=== PATIENT | male | born 1950 | race African-American/Black ===

== ENCOUNTER 2019-05-13 13:18 | Emergency (ER) | payer OTHER ==
[~2019-05-13] VITALS: Ht 170.2 cm; Wt 81.7 kg
[~2019-05-13 13:18] MED LIST: ASA5UEC PO; COZAAR 25 MG TA25 M2 PO; EFFIENT10 MG PO; LIPITOR40 MG PO; METOPROLOL SUCC25 M1 PO
[2019-05-13 14:03] LABS: ABSOLUTE NEUTROPHILS 6.7 thou/uL (1.4-8.2); BASOPHILS 0.7 % (0.0-2.0); EOSINOPHILS 0.8 % (0.0-3.0); HEMATOCRIT 44.1 % (42.0-52.0); HEMOGLOBIN 13.8 gm/dL (14.0-18.0); LYMPHOCYTES 11.9 % (24.0-44.0); MCH 28.8 pg (26.0-34.0); MCHC 31.2 g/dL (28.0-37.0); MCV 92.4 fL (80.0-100.0); PLATELET COUNT 235 thou/uL (150-400); POLYS 81.6 % (36.0-66.0); RBC 4.77 mil/uL (4.50-6.00); RDW 13.5 % (10.5-14.5); WBC 8.3 thou/uL (4.0-11.0)
[2019-05-13 14:07] LABS: ANION GAP 8 mmol/L (7-16); BUN 16 mg/dL (7-18); CALCIUM 9.3 mg/dL (8.5-10.1); CHLORIDE 106 mmol/L (98-107); CO2 27 mmol/L (21-32); CREATININE 1.1 mg/dL (0.7-1.3); GLUCOSE 121 mg/dL (74-106); SODIUM 141 mmol/L (136-145)
[2019-05-13 14:18] LABS: ALBUMIN 3.8 g/dL (3.4-5.0); MAGNESIUM 2.2 mg/dL (1.8-2.4); SGOT 33 U/L (15-37); SGPT 32 U/L (30-65); TOTAL PROTEIN 6.9 g/dL (6.4-8.2); TROPONIN-I <0.06 ng/mL (<0.06)
[2019-05-13] MEDS ORDERED: PAIN RELIEVER500 MG PO (14:43)
[2019-05-13] MEDS ORDERED: ROBAXIN 750 MG750 MG PO (14:43)
[2019-05-13 14:50] LABS: URINE BILIRUBIN NEGATIVE (Negative); URINE BLOOD TRACE (Negative); URINE CLARITY CLEAR; URINE COLOR YELLOW; URINE GLUCOSE-RANDOM* NEGATIVE (Negative); URINE KETONES NEGATIVE (Negative); URINE LEUKOCYTES-REFLEX NEGATIVE (Negative); URINE NITRITE-REFLEX NEGATIVE (Negative); URINE PROTEIN (DIPSTICK) NEGATIVE (Negative); URINE SPECIFIC GRAVITY <= 1.005 (1.005-1.035); URINE UROBILINOGEN 0.2 E.U./dl (0.2-1.0)
[2019-05-13 15:32] VITALS: BP 120/61
--- NOTE | 2019-05-13 16:53 | EKG ---
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
== END 2019-05-13 15:34 | disposition home or self-care (01) ==
LOC: ER 13:18
PROVIDERS: Emergency Medicine
DX: M25.551 Pain in right hip (principal); R42 Dizziness and giddiness; E78.5 Hyperlipidemia, unspecified

== ENCOUNTER → 2019-12-22 | Outpatient (CLI) | payer OTHER ==
[~2019-12-22] MED LIST changes: +PAIN RELIEVER500 MG PO; +ROBAXIN 750 MG750 MG PO
== END ==
LOC: SJCVCIMAG 12-15 10:23
DX: I49.3 Ventricular premature depolarization (principal); R00.0 Tachycardia, unspecified; I25.10 Atherosclerotic heart disease of native coronary artery without angina pectoris; I25.5 Ischemic cardiomyopathy; I10 Essential (primary) hypertension; I25.2 Old myocardial infarction; Z79.899 Other long term (current) drug therapy

== ENCOUNTER → 2021-03-21 | Outpatient (CLI) | payer BC | LOC: SJCVCIMAG 08:09 | PROVIDERS: ATTEND Internal Medicine Cardiovascular Disease | DX: I25.10 Atherosclerotic heart disease of native coronary artery without angina pectoris (principal); R53.83 Other fatigue; R06.00 Dyspnea, unspecified; R51.9 Headache, unspecified; I25.2 Old myocardial infarction; Z95.5 Presence of coronary angioplasty implant and graft; Z79.899 Other long term (current) drug therapy ==

== ENCOUNTER → 2021-03-28 | Outpatient (CLI) | payer BC ==
[~2021-03-28] VITALS: Ht 167.6 cm; Wt 93.0 kg
[~2021-03-28] MED LIST changes: +ZETIA10 MG PO
[2021-03-28 07:42] VITALS: BP 126/71
[2021-03-28 08:22] LABS: HEMATOCRIT 44.8 % (42.0-52.0); HEMOGLOBIN 14.2 gm/dL (14.0-18.0); MCH 29.4 pg (26.0-34.0); MCHC 31.6 g/dL (28.0-37.0); RBC 4.82 mil/uL (4.50-6.00); RDW 13.4 % (10.5-14.5); WBC 6.5 thou/uL (4.0-11.0)
[2021-03-28 08:26] LABS: CALCIUM 8.9 mg/dL (8.5-10.1); CREATININE 1.1 mg/dL (0.7-1.3); POTASSIUM 4.2 mmol/L (3.5-5.1)
--- NOTE | 2021-03-29 08:55 | CATHLAB ---
[facility] [place] [address] INVASIVE PROCEDURE REPORT Name: RADHA RIVAS Room #: REG LE Rankin#: [id number] Admission: 03/28/21 Attend Phys: Ephraim Jordan MD, Discharge: Date of : 46 Report #: [id number] THIS REPORT FOR: cc: Artur Ramírez Andrea RNP Mancuso, Gerald M. MD [facility] ~ APPROVED REPORT Study performed: 03/28/2021 07:23:36 Patient Details Patient Status: Out-Patient Room #: The patient is a 70 year-old male Event Personnel Ephraim Jordan Cigar Head Stringer, Tobias Seymour RN RN, Natali Hernandez RN RN, Tali Lopez RTR, IDA Scrub, Marisela Mcwilliams RTR Scrub, Radha Palacios Monitor Procedures Performed Art Access - R femoral artery* Left Heart Cath w/or w/o Coronaries [id number] [facility] [address] Initial Mod Sed Same Phys/QHP Gr 804061 43208 Mod Sed Same Phys/QHP Ea 078577 Hemostasis w/ Mynx Indication Chest pain Procedure Narrative The Right Groin^ was infiltrated with 1% Lidocaine subcutaneous anesthesia. A PINNACLE 6FR Sheath #[id number] sheath was inserted into the RFA^. Coronary angiography was performed using coronary diagnostic catheters. The right coronary system was accessed and visualized with a JR4 catheter. The left coronary system was accessed and visualized with a JL4 catheter. The left ventricle was accessed and visualized with a STR PIG catheter. There was no hematoma. Intraoperative Conscious Sedation Sedation start time: 855 Case end Time: 929 Fentanyl 50 mcg Versed 1 mg Fluoro Time: 1.30 minutes Dose: DAP 4730.30 cGycm2 663 mGy [facility] [address] [place] [address] INVASIVE PROCEDURE REPORT Name: RADHA RIVAS Room #: [facility]#: [id number] Admission: 03/28/21 Attend Phys: Ephraim Jordan, Discharge: Date of : 46 Report #: [id number] Contrast Type and Amount: Visipaque 80 ml Hemodynamics The aortic pressure is 108/53 mmHg with a mean of 78 mmHg. The left ventricular end diastolic pressure is 12 mmHg. Conclusion #1 Left ventriculogram revealing normal left ventricular size and systolic function no wall motion abnormality EF 60%. #2 left main previously stented has mild in-stent restenosis the stent extends into the large ostial proximal circumflex. Brisk flow remains through into the LAD system. There is also a mid vessel lesion of 60 to 70% after the first septal window shade estimator #3 the LAD has an eccentric lesion off the left main of 30% and a proximal lesion then of 60 to 70% this appears unchanged from 2 years prior. With brisk flow through the LAD. #4 circumflex OM with a proximal stent and first OM stent remain widely patent. Is nondominant but moderate in distribution. #5 dominant right coronary artery is widely patent. Recommendations and plan: Continue aggressive risk factor modification. This does not appear to have any significant progression in the LAD system. The stress test did not show ischemia in anterior wall patient's complaints of fatigue may be due to deconditioning. We will follow-up with nuclear stress testing within the next 6 months to evaluate for ischemia in the anterior distribution. Sooner if significant symptomatology would develop. <ELECTRONICALLY SIGNED> By: Ephraim Jordan MD, FACC 03/29/21854 4 4 Ephraim Jordan MD, FACC /INF
== END | disposition home or self-care (01) ==
LOC: CATH 06:33
PROVIDERS: ATTEND Internal Medicine Cardiovascular Disease
DX: R07.9 Chest pain, unspecified (principal); I25.10 Atherosclerotic heart disease of native coronary artery without angina pectoris; T82.855A Stenosis of coronary artery stent, initial encounter; I10 Essential (primary) hypertension; E78.5 Hyperlipidemia, unspecified; I25.2 Old myocardial infarction; Z98.890 Other specified postprocedural states; Z79.899 Other long term (current) drug therapy; Z82.49 Family history of ischemic heart disease and other diseases of the circulatory system; Y83.8 Other surgical procedures as the cause of abnormal reaction of the patient, or of later complication, without mention of misadventure at the time of the procedure; Z79.82 Long term (current) use of aspirin